=== PATIENT | female | born 1985 | race African-American/Black ===

== ENCOUNTER 2023-08-08 06:45 | Inpatient (IN) | payer OTHER ==
[2023-08-08] MEDS ORDERED: morphine SULFATE/PF 1 MG/2 ML (2cc Syringe - QUVA) ONE (07:37)
[2023-08-08 08:07] VITALS: BMI 41.1
[2023-08-08] MEDS ORDERED: CITRIC ACID/SODIUM CITRATE 30 ML UNIT-DOSE CUP PO ONE (08:15)
[2023-08-08] MEDS ORDERED: ELECTROLYTE-148 SOLN 500 ML IV SCH (08:15)
[2023-08-08] MEDS ORDERED: ELECTROLYTE-148 SOLN 1,000 ML IV SCH ×3 (08:15→08:45)
[2023-08-08] MEDS ORDERED: IBUPROFEN 800 MG/8 ML IJ IVPB PRN (08:37)
[2023-08-08] MEDS ORDERED: METHYLERGONOVINE MALEATE 0.2 MG/1 ML AMP IM PRN (08:37)
[2023-08-08] MEDS ORDERED: ACETAMINOPHEN 325 MG TABLET (FP) PO PRN (08:37)
[2023-08-08] MEDS: PRENATAL VITAMINS W/ FOLIC ACID TABLET (FP) PO SCH (10:00)
[2023-08-08] MEDS: FERROUS SO4 325 MG TABLET (FP) PO SCH (10:00)
[2023-08-08] MEDS ORDERED: OXYTOCIN 20 UNITS in 0.9% NS 20 UNIT/1,000 ML INFUS.BAG IV ONE (10:24)
[2023-08-08] MEDS: OXYTOCIN 20 UNITS in 0.9% NS 20 UNIT/1,000 ML INFUS.BAG IV SCH (10:33)
[2023-08-08] MEDS ORDERED: oxyCODONE HCL 5 MG TABLET PO PRN (20:40)
[2023-08-09] MEDS: OXYTOCIN 20 UNITS in 0.9% NS 20 UNIT/1,000 ML INFUS.BAG IV SCH (00:05)
[2023-08-09] MEDS: FERROUS SO4 325 MG TABLET (FP) PO SCH ×3 (00:35→22:17)
[2023-08-09 08:24] LABS: BASO % 0.5 % (0-2.0); EOS % 0.3 % (0-4.5); HEMATOCRIT 28.8 % (32.4-45.2); HEMOGLOBIN 9.2 GM/dL (10.7-15.3); MCH 28.1 pg (25.7-33.7); MCHC 31.8 g/dl (32.0-36.0); MEAN CELL VOLUME 88.5 fl (80-96); MEAN PLT VOLUME 9.2 fl (7.5-11.1); MONO % 9.1 % (3.8-10.2); NEUT % 75.1 % (42.8-82.8); PLATELET COUNT 181 10^3/uL (134-434); RBC 3.26 M/mm3 (3.60-5.2); RDW 14.3 % (11.6-15.6); WHITE BLOOD COUNT 11.1 K/mm3 (4.0-10.0)
[2023-08-09] MEDS ORDERED: BISACODYL 10 MG SUPP.RECT RC PRN (08:40)
[2023-08-09] MEDS ORDERED: ACETAMINOPHEN 1000 MG/100 ML BAG IVPB PRN (09:20)
[2023-08-09] MEDS: PRENATAL VITAMINS W/ FOLIC ACID TABLET (FP) PO SCH (09:29)
[2023-08-09] MEDS: IBUPROFEN 600 MG TABLET (FP) PO PRN ×3 (10:09→22:17)
[2023-08-09] MEDS: SIMETHICONE 80 MG TAB.CHEW (FP) PO PRN (17:00)
[2023-08-09] MEDS: oxyCODONE HCL 5 MG TABLET PO PRN (19:18)
[2023-08-10] MEDS: SIMETHICONE 80 MG TAB.CHEW (FP) PO PRN ×4 (03:21→20:05)
[2023-08-10] MEDS: SENNOSIDES/DOCUSATE COMBO (SENNA PLUS) TABLET (UD) PO PRN ×2 (03:22→20:05)
[2023-08-10] MEDS: oxyCODONE HCL 5 MG TABLET PO PRN ×2 (03:22→20:03)
[2023-08-10] MEDS: IBUPROFEN 600 MG TABLET (FP) PO PRN ×2 (08:45→13:44)
[2023-08-10] MEDS: FERROUS SO4 325 MG TABLET (FP) PO SCH ×2 (09:04→22:41)
[2023-08-10] MEDS: PRENATAL VITAMINS W/ FOLIC ACID TABLET (FP) PO SCH (09:04)
[2023-08-10] MEDS: OXYTOCIN 20 UNITS in 0.9% NS 20 UNIT/1,000 ML INFUS.BAG IV SCH (17:25)
[2023-08-11] MEDS: IBUPROFEN 600 MG TABLET (FP) PO PRN ×3 (01:16→15:33)
[2023-08-11] MEDS: ACETAMINOPHEN 325 MG TABLET (FP) PO PRN ×2 (03:05→10:26)
[2023-08-11] MEDS: SIMETHICONE 80 MG TAB.CHEW (FP) PO PRN ×2 (07:33→15:34)
[2023-08-11] MEDS: FERROUS SO4 325 MG TABLET (FP) PO SCH (10:19)
[2023-08-11] MEDS: PRENATAL VITAMINS W/ FOLIC ACID TABLET (FP) PO SCH (10:19)
[2023-08-11 11:53] VITALS: BP 102/67; PULSE 81; RESP 20; TEMP 97.9
== END 2023-08-11 15:40 | disposition home or self-care (01) | DRG 540 ==
LOC: JLDR 06:45 → J3W 12:25
PROVIDERS: ADMIT Obstetrics & Gynecology; ATTEND Obstetrics & Gynecology
PROC: 10D00Z1 Extraction of Products of Conception, Low, Open Approach (ICD-10-PCS; principal; 2023-08-08)
DX: O34.211 Maternal care for low transverse scar from previous cesarean delivery (principal); Z3A.39 39 weeks gestation of pregnancy; Z37.0 Single live birth
CPT/HCPCS: 36415; 85025; 88307-TC; 94010